=== PATIENT | male | born 1950 | race Caucasian/White ===

== ENCOUNTER → 2023-11-12 12:55 | Outpatient (REF) | payer OTHER, SELFPAY | LOC: DHCBS MAIN 12:55 | PROVIDERS: ATTENDING PHYSICIAN Internal Medicine Cardiovascular Disease; FAMILY PHYSICIAN Student in an Organized Health Care Education/Training Program | DX: Z95.2 Presence of prosthetic heart valve (principal); Z95.1 Presence of aortocoronary bypass graft | CPT/HCPCS: 93306 ==